=== PATIENT | female | born 1980 | race Caucasian/White ===

== ENCOUNTER 2017-10-08 15:17 | Outpatient (CLI) | payer BC ==
--- NOTE | 2017-10-09 11:30 | MMO ---
MAMMOGRAM DIGITAL SCREENING BILATERAL: DATE: 10/08/17 HISTORY: 37-year-old female for baseline bilateral screening mammogram. COMPARISON: None available. TECHNIQUE: Digital mammographic views. Computer-aided detection (CAD) utilized. FINDINGS: The breasts are extremely dense, which lowers the sensitivity of mammography. There is no evidence of suspicious mass, suspicious calcifications, or architectural distortion. IMPRESSION: 1. BIRADS 1 - Negative. 2. Recommendation: routine bilateral annual screening mammogram at age 40 (unless the patient develo ps suspicious clinical findings that would warrant earlier imaging follow up). annabella [] POS: SAUL
== END 2017-10-08 15:18 | disposition home or self-care (01) ==
LOC: SCSMAMMO 15:17
PROVIDERS: ATTEND Family Medicine
DX: Z12.31 Encounter for screening mammogram for malignant neoplasm of breast (principal)
CPT/HCPCS: 77067

== ENCOUNTER 2018-08-30 08:20 | Outpatient (CLI) | payer BC ==
--- NOTE | 2018-08-30 09:58 | ULT ---
COMPLETE ABDOMEN ULTRASOUND: INDICATIONS: Right flank pain and chest pain. COMPARISON: Right upper quadrant abdominal ultrasound, dated 06/17/2006 and 06/21/2009. FINDINGS: There has been interval development of multiple stones within the gallbladder. The gallbladder wall measures 2.7 mm. The sonographic Arnold sign is equivocal. The common bile duct measures 3.3 mm. N o pericholecystic edema is evident. The pancreas is largely obscured. The visualized aorta and IVC are within normal limits. The liver demonstrated no focal hepatic lesion. The spleen measured 12.6 cm. The right kidney measures 10.3 x 5.7 x 6.5 cm. The left kidney measures 10.1 x 5.2 x 5.5 cm. There is a 1.3 cm cyst off the left mid kidney. There is a small suspected 1.4 cm calcification involving the left mid kidney. IMPRESSION: 1. Interval development of numerous gallstones within the gallbladder with mild gallbladder wall thi ckening but an equivocal sonographic Arnold sign. Findings are equivocal for acute calculus cholecys titis. If clinically indicated, a HIDA scan may be helpful for further evaluation. 2. Left renal cyst. 3. Left nephrolithiasis. POS: CET
== END 2018-08-30 08:21 | disposition home or self-care (01) ==
LOC: SCSULT 08:20
PROVIDERS: ATTEND Internal Medicine Gastroenterology
DX: K59.00 Constipation, unspecified (principal); R10.9 Unspecified abdominal pain; R07.9 Chest pain, unspecified; K80.20 Calculus of gallbladder without cholecystitis without obstruction; N20.0 Calculus of kidney; N28.1 Cyst of kidney, acquired; K82.8 Other specified diseases of gallbladder
CPT/HCPCS: 76700

== ENCOUNTER → 2018-09-17 | Day surgery (SDC) | payer BC ==
[2018-09-16 10:13] VITALS: BMI 29.2
[~2018-09-17] MED LIST: Bupivacaine/Epinephrine 0.25% 30 ML VIAL ONE; Dexamethasone 20 MG/5 ML VIAL ONE; Fentanyl 100 MCG/2 ML VIAL ONE; Glycopyrrolate 0.2 MG/ML 5 ML SYRINGE ONE; Ketorolac Tromethamine 30 MG/ML VIAL ONE; Levofloxacin 500 mg/D5W 100 ml Premix Bag ONE; Lidocaine 1% PF 5 ML VIAL ONE; Ondansetron PF 4 MG/2 ML Vial ONE; PROPOFOL 200 MG/20 ML VIAL ONE; Rocuronium Bromide 10 MG/ML (10ML VIAL) ONE; Scopolamine 1.5 mg/72 hour Patch ONE
--- NOTE | 2018-09-17 08:43 | HP ---
HISTORY OF PRESENT ILLNESS: Ms. Lynsey Dutta is a 38-year-old female, referred to Dr. Vaughn Marx and Dr. David Vaughn for symptomatic gallstones. She had a severe attack with right upper quadrant epigastric pain, flank radiation. She has had bloating, belching and indigestion. She is recently and has a cruise planned for next week. Her symptoms have not been so bad since she has changed her eating habits. ALLERGIES: SULFA, PENICILLIN. 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 Tobacco one half pack per day. Alcohol, none. MEDICATIONS: 1. Omeprazole. 2. Zoloft. 3. MiraLAX. PAST SURGICAL HISTORY: 1. Heterotopic , . 2. She has had a colonoscopy in 2008. REVIEW OF SYSTEMS: Noncontributory. PHYSICAL EXAMINATION: VITAL SIGNS: 169 pounds, 64 inches, 29 BMI, 137/90, pulse 75, and temperature 99.5 degrees. HEAD, EYES, EARS, NOSE AND THROAT: Unremarkable. LUNGS: Clear to auscultation. CARDIAC: Rhythm. No murmur or gallop. ABDOMEN: Soft, mild tenderness to epigastric right upper quadrant. No guarding or rebound. EXTREMITIES: Unremarkable. IMAGIN. EKG 2007. 2. Stress test 2007, normal. 3. Ultrasound gallstones with 3.3 mm bile duct. 4. Left renal cyst. 5. Left nephrolithiasis, nonobstructive. LABORATORY DATA: 08/23/2018. White count 12, hemoglobin 15.3, platelet count 324,000. BUN 11, creatinine 0.95, glucose 93. Sodium 139, potassium 4.1. Liver function tests are normal. TSH normal. ASSESSMENT AND PLAN: 1. Cholecystitis, cholelithiasis. Recommend laparoscopic video cholecystectomy. Risks of infection, bleeding, visceral and biliary injury, procedure discussed. Questions answered. 2. Tobacco abuse, tobacco cessation. Job ID: [id number]
--- NOTE | 2018-09-17 13:42 | OP ---
DATE OF PROCEDURE: 09/17/2018 POSTOPERATIVE DIAGNOSES: Chronic cholecystitis and cholelithiasis. POSTOPERATIVE DIAGNOSES: Chronic cholecystitis and cholelithiasis. PROCEDURE PERFORMED: Laparoscopic video cholecystectomy. ANESTHESIA: General, local 0.5% Marcaine with epinephrine 30 mL. DESCRIPTION OF PROCEDURE: The patient was taken to the operating room, where under general anesthesia, abdomen was prepared with ChloraPrep and draped in routine fashion. Local anesthetic was infiltrated in the skin and subcutaneous tissue about each port site. The infraumbilical incision was made. Pneumoperitoneum to 15 mmHg obtained with a Veress needle, replaced with a 5 port and laparoscope inserted. The liver appeared to be normal. Gallbladder had multiple stones. The fundus of the gallbladder was grasped at the cephalad. Infundibulum grasped and reflected laterally. Cystic artery and duct dissected free. Critical view obtained. Cystic artery and duct divided and gallbladder dissected free from liver bed, obtaining good hemostasis prior to division of the final peritoneal attachments. Gallbladder and contents removed and submitted to Pathology. Good hemostasis noted. Irrigant and pneumoperitoneum evacuated. All instruments removed. All skin incisions were approximated with interrupted subdermal 4-0 Monocryl and Dermaglue applied. Job ID: [id number]
--- NOTE | 2018-09-17 14:35 | EKG ---
Test Reason : PREOP Blood Pressure : / mmHG Vent. Rate : 058 BPM Atrial Rate : 058 BPM P-R Int : 170 ms QRS Dur : 100 ms QT Int : 426 ms P-R-T Axes : 038 005 021 degrees QTc Int : 418 ms Sinus bradycardia with sinus arrhythmia Otherwise normal ECG When compared with ECG of 11-SEP-2014 02:18, No significant change was found Confirmed by JAMILA HART, SJaimee ([id number]) on 09/17/2018 2:35:01 PM Referred By: BLAIR Confirmed By:DR. Satnam MARINO MD
== END ==
LOC: SDC 07:03
PROVIDERS: ATTEND Specialist
PROC: 0FT44ZZ Resection of Gallbladder, Percutaneous Endoscopic Approach (ICD-10-PCS; principal; 2018-09-17)
DX: K80.12 Calculus of gallbladder with acute and chronic cholecystitis without obstruction (principal); F17.210 Nicotine dependence, cigarettes, uncomplicated; I10 Essential (primary) hypertension; E78.5 Hyperlipidemia, unspecified; K21.9 Gastro-esophageal reflux disease without esophagitis; F32.9 Major depressive disorder, single episode, unspecified; Z79.899 Other long term (current) drug therapy; Z88.0 Allergy status to penicillin; Z88.2 Allergy status to sulfonamides
CPT/HCPCS: 88304; 93005; 93010; J0131; J1100; J1885; J1956; J2001; J2405; J2704; J3010

== ENCOUNTER 2019-05-09 11:58 | Outpatient (CLI) | payer BC ==
--- NOTE | 2019-05-09 16:53 | MMO ---
Bilateral MAMMO Bilat Screen [facility]. CLINICAL HISTORY: Patient is 38 years old and is seen for screening. The patient has no family history of breast cancer. The patient has no personal history of cancer. VIEWS: The views performed were: bilateral craniocaudal with tomosynthesis and bilateral mediolateral oblique with tomosynthesis. FILMS COMPARED: The present examination has been compared to a prior imaging study performed at [facility] on 10/08/2017. This study has been interpreted with the assistance of computer-aided detection. MAMMOGRAM FINDINGS: The breasts are heterogeneously dense, which could obscure a lesion on mammography. There are no suspicious masses, suspicious calcifications, or new areas of architectural distortion. IMPRESSION: THERE IS NO MAMMOGRAPHIC EVIDENCE OF MALIGNANCY. A ROUTINE FOLLOW-UP MAMMOGRAM AT AGE 40 IS RECOMMENDED. THE RESULTS OF THIS EXAM WERE SENT TO THE PATIENT. ACR BI-RADS Category 1 - Negative MAMMOGRAPHY NOTE: 1. A negative mammogram report should not delay a biopsy if a dominant of clinically suspicious mass is present. 2. Approximately 10% to 15% of breast cancers are not detected by mammography. 3. Adenosis and dense breasts may obscure an underlying neoplasm. Reported by: JEANNINE VALENTINE MD Electonically Signed: [id number]
== END 2019-05-09 11:59 | disposition home or self-care (01) ==
LOC: BICMAMMO 11:58
PROVIDERS: ATTEND Family Medicine
DX: Z12.31 Encounter for screening mammogram for malignant neoplasm of breast (principal)
CPT/HCPCS: 77063; 77067

== ENCOUNTER 2022-05-29 10:33 | Outpatient (CLI) | payer BC ==
[2022-05-29 11:49] LABS: Hemoglobin 12.8 g/dL (12.0-15.5); Mean Corpuscular HGB CONC 34.4 g/dL (32.0-36.0); Mean Corpuscular Hemoglobin 29.9 pg (27.0-33.0); Mean Corpuscular Volume 86.9 fl (81.6-98.3); Platelet Count 314 10x3/uL (150-450); RBC Distribution Width 11.9 % (11.5-14.5); Red Blood Cell (RBC) Count 4.28 10x6/uL (3.90-5.03); White Blood Cell (WBC) Count 12.1 10x3/uL (3.5-10.5)
[2022-05-29 12:03] LABS: BHCG - Serum Negative (NEGATIVE); Pregs Control Background? CLEAR/WHITE (CLR/WHITE); Pregs Control Bar Appear? YES (CONTROL BAR)
[2022-05-29 12:10] LABS: Anion Gap 13 mmol/L (10-20); BUN (Urea Nitrogen) 8 mg/dL (7.0-18.7); Calc. Creatinine Clearance 0 mL/min (70-130); Calcium 9.3 mg/dL (7.8-10.44); Carbon Dioxide 26 mmol/L (22-29); Chloride 104 mmol/L (98-107); Estimated GFR 99; Glucose 84 mg/dL (70-105); Potassium 3.5 mmol/L (3.5-5.1); Sodium 139 mmol/L (136-145)
[2022-05-29 12:19] LABS: PTT 21.7 sec (22.0-33.0); Prothrombin Time 10.4 sec (9.5-12.1)
== END 2022-05-29 10:34 | disposition home or self-care (01) ==
LOC: LABBT 10:33
PROVIDERS: ATTEND Urology
DX: Z01.818 Encounter for other preprocedural examination (principal); N20.2 Calculus of kidney with calculus of ureter; R35.0 Frequency of micturition
CPT/HCPCS: 80048; 84703; 85027; 85610; 85730; 93005; 93010

== ENCOUNTER 2022-09-22 13:29 | Outpatient (CLI) | payer BC | END 2022-09-22 13:30 | disposition home or self-care (01) | LOC: ULT 13:29 | PROVIDERS: ATTEND Urology | DX: N20.0 Calculus of kidney (principal); N28.1 Cyst of kidney, acquired; Z87.440 Personal history of urinary (tract) infections; R39.14 Feeling of incomplete bladder emptying; N13.30 Unspecified hydronephrosis; Z98.890 Other specified postprocedural states | CPT/HCPCS: 74018; 76770 ==

== ENCOUNTER 2023-02-12 07:34 | Outpatient (CLI) | payer BC | END 2023-02-12 07:35 | disposition home or self-care (01) | LOC: RAD 07:34 | PROVIDERS: ATTEND Urology | DX: N20.0 Calculus of kidney (principal); N28.1 Cyst of kidney, acquired; Z87.440 Personal history of urinary (tract) infections; Z98.890 Other specified postprocedural states | CPT/HCPCS: 51600; 74018; 74455; 76770 ==